=== PATIENT | female | born 1990 | race Caucasian/White ===

== ENCOUNTER 2018-11-03 01:22 | Outpatient (CLI) | payer OTHER ==
[2018-11-03 02:07] LABS: APPEARANCE,URINE CLEAR; BILIRUBIN,URINE NEGATIVE (NEGATIVE); COLOR,URINE COLORLESS; GLUCOSE, URINE NEGATIVE (NEGATIVE); KETONES,URINE NEGATIVE (NEGATIVE); LEUKOCYTE ESTERASE,URINE NEGATIVE (NEGATIVE); NITRITE,URINE NEGATIVE (NEGATIVE); PROTEIN,URINE NEGATIVE (NEGATIVE); URINE SPECIFIC GRAVITY 1.002; UROBILINOGEN,URINE NEGATIVE mg/dL (<2.0)
[2018-11-03 02:19] LABS: URINE AMPHETAMINES SCREEN NEGATIVE; URINE BARBITURATES SCREEN NEGATIVE; URINE BENZODIAZEPINES SCREEN NEGATIVE; URINE COCAINE SCREEN NEGATIVE; URINE MARIJUANA (THC) SCREEN NEGATIVE; URINE METHADONE SCREEN NEGATIVE; URINE PHENCYCLIDINE SCREEN NEGATIVE
--- NOTE | 2018-11-03 03:06 | RADIOLOGY REPORT (SQ) ---
EXAM DESCRIPTION: US LIMITED COMPLETED DATE/TME: 11/03/2018 00:00 CLINICAL HISTORY: 28 years Female, post fall, rule out abruption, cervical length 28w1d Comparison: None. TECHNIQUE/LIMITATION: Targeted OB sonogram for requested parameters only. FINDINGS: Cardiac activity: 144-bpm. TAMI: 13-cm Placenta: Posterior. No evidence of abruption. Low-lying placenta. Presentation: Vertex Cervical length: 3.8-cm. Closed appearance. Other: Possible nuchal cord. IMPRESSION: Targeted OB sonogram for requested parameters
== END 2018-11-03 03:24 | disposition home or self-care (01) ==
LOC: LC 01:22
PROVIDERS: ATTEND Obstetrics & Gynecology
PROC: 4A1HXCZ Monitoring of Products of Conception, Cardiac Rate, External Approach (ICD-10-PCS; principal; 2018-11-03)
DX: Z34.83 Encounter for supervision of other normal pregnancy, third trimester (principal); Z91.81 History of falling
CPT/HCPCS: 76815; 80307; 81001

== ENCOUNTER 2019-01-20 21:16 | Outpatient (CLI) | payer OTHER ==
[2019-01-20 22:10] LABS: APPEARANCE,URINE CLOUDY; BILIRUBIN,URINE NEGATIVE (NEGATIVE); COLOR,URINE YELLOW; GLUCOSE, URINE NEGATIVE (NEGATIVE); KETONES,URINE NEGATIVE (NEGATIVE); LEUKOCYTE ESTERASE,URINE MODERATE (NEGATIVE); NITRITE,URINE NEGATIVE (NEGATIVE); PROTEIN,URINE NEGATIVE (NEGATIVE); URINE SPECIFIC GRAVITY 1.012; UROBILINOGEN,URINE NEGATIVE mg/dL (<2.0)
--- NOTE | 2019-01-20 22:25 | Non Stress Test Report ---
Non Stress Test Datetime Report Generated by CPN: 01/20/2019 22:24 DEMOGRAPHIC EGA NST: 39.2 INDICATION Indication for Study: Ordered by Provider URINE RESULTS Urine Protein, NST: Negative Urine Ketones - NST: Negative Urine Glucose - NST: Negative Urine Blood - NST: Negative MONITORING Monitor Explained: Monitor Explained; Test Explained; Patient Verbalized Understanding Time on Monitor: 01/20/2019 21:30 Time off Monitor: 01/20/2019 22:21 NST Duration: 51 NST INTERVENTIONS NST Interventions: PO Hydration; Reposition Patient Physician Notified NST: Dr. Ley BABY A: [id number] BABY A Movement : Present Contraction Frequency : Occasional FHR Baseline : 125 Accelerations : 15X15 Decelerations : None Variability : Moderate 6-25bpm NST Review: Meets Criteria for Reactive NST NST Review and Verified By : Eyal Lord RN NST Results: Reactive NST REPORT Report Trigger: Send Report
[2019-01-20 22:33] LABS: URINE AMPHETAMINES SCREEN NEGATIVE; URINE BARBITURATES SCREEN NEGATIVE; URINE BENZODIAZEPINES SCREEN NEGATIVE; URINE COCAINE SCREEN NEGATIVE; URINE MARIJUANA (THC) SCREEN NEGATIVE; URINE METHADONE SCREEN NEGATIVE; URINE PHENCYCLIDINE SCREEN NEGATIVE
== END 2019-01-20 22:36 | disposition home or self-care (01) ==
LOC: LC 21:16
PROVIDERS: ATTEND Obstetrics & Gynecology Gynecology
PROC: 4A1HXCZ Monitoring of Products of Conception, Cardiac Rate, External Approach (ICD-10-PCS; principal; 2019-01-20)
DX: O47.1 False labor at or after 37 completed weeks of gestation (principal); Z3A.39 39 weeks gestation of pregnancy
CPT/HCPCS: 59025; 80307; 81005; 84112

== ENCOUNTER 2019-01-25 11:56 | Inpatient (IN) | payer OTHER ==
[2019-01-25] MEDS ORDERED: RINGERS SOLUTION,LACTATED 300 ML IV ONE (12:14)
[2019-01-25] MEDS ORDERED: RINGERS SOLUTION,LACTATED 1,000 ML IV PRN (12:14)
--- NOTE | 2019-01-25 12:30 | Admission Physical ---
Datetime Report Generated by CPN: 01/25/2019 12:29 CURRENT ADMISSION Hx Assessment: The History has been Reviewed and is Current Chief Complaint: Uterine Contractions Indication for Induction: Not Applicable Admit Impression : Term, Intrauterine ; No Active Labor; Intact Membranes Admit Plan: Admit to Unit; Initiate Labor Protocol ALLERGIES Medication Allergies: No Medication Allergies: Penicillins (01/20/2019) Latex: No Latex Allergies Environmental Allergies: seasonal OBSTETRICAL HISTORY EDC: 01/25/2019 00:00 : 2 Para: 1 Term: 1 : 0 SAB: 0 IAB: 0 Ectopic: 0 Livin Cesareans: 0 VBACs: 0 Multiple Births: 0 Gestational Diabetes: No Rh Sensitization: No Incompetent Cervix: No PAVAN: No Infertility: No ART Treatment: No Uterine Anomaly: No IUGR: No Hx Previous C/S: No Macrosomia: No Hx Loss/Stillborn: No PIH: No Hx : No Placenta Previa/Abruption: No Depression/PP Depression: No PTL/PROM: No Post Hemorrhage: No Current Procedures: Ultrasound Obstetrical History Comments: G1- 6lbs 4 oz female , 07/18/2017- patient told she has small canal G2- current SEE RECORDS Alcohol: No Marijuana : No Cocaine: No Other Illicit Drugs: No Cigarettes: Current Everyday Smoker. 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: No Heart Disease: No Hosp/Surgery: No Autoimmune Disorder: No Anesthetic Complications: No Kidney Disease: No Abnormal Pap Smear: Yes Neuro/Epilepsy: No Psychiatric Disorders: No Other Medical Diseases: No Hepatitis/Liver Disease: No Significant Family History: No Varicosities/Phlebitis: No Trauma/Violence : No Thyroid Dysfunction: No INFECTIOUS HISTORY Gonorrhea: No Genital Herpes: No Chlamydia: No Tuberculosis: No Syphilis: No Hepatitis: No HIV/AIDS Exposure: No Rash or Viral Illness: No HPV: Yes Infectious History Comments: ASCUS w HRHPV- needs colpo PP PHYSICAL EXAM General: Normal HEENT: Normal Neurologic: Normal Thyroid: Deferred Heart: Normal Lungs: Normal Breast: Deferred Back: Normal Abdomen: Normal Genitourinary Exam: Deferred Extremities: Normal DTRs: Normal Pelvic Type: Adequate Physical Exam Comments: GBS + Vital Signs: Reviewed MEMBRANES Membranes: Intact FETUS A EGA: 40.0 Monitoring: External US Variability: Moderate 6-25bpm Accelerations: 15X15 Decelerations: None FHR Category: Category I Admit Comment: Admitted to LD in active labor, started having uc's last night, worse this am Cat 1 strip, + GBS Plan: treat with Clindamycin, anticipate PLANS FOR LABOR AND DELIVERY Labor and Delivery: None Pain Management: Epidural Feeding Preference: Breast Benefit of Breast Feed Discussed: Yes Circumcision: Yes INFORMED CONSENT Assignment: Arturo Ley MD Signature: with User ID: Noah : with User ID: [email or web address]
[2019-01-25] MEDS ORDERED: CLINDAMYCIN 900 MG/D5W RTU 900 MG/50 ML RTUPB IV ONE (12:53)
[2019-01-25] MEDS ORDERED: MISOPROSTOL 0.2 MG TABLET ONE (13:18)
[2019-01-25] MEDS ORDERED: LIDOCAINE 1% INJ-PF (10 MG/ML) 30 ML SDV ONE (13:18)
[2019-01-25] MEDS ORDERED: OXYTOCIN/NORMAL SALINE 0 UNIT/0 ML RTUINJ ONE (13:18)
[2019-01-25] MEDS ORDERED: OXYTOCIN 10 UNIT/ML VIAL ONE ×2 (13:18→20:19)
[2019-01-25 13:32] LABS: ABSOLUTE LYMPHOCYTES (AUTO) 0.8 10^3/uL (0.5-4.7); ABSOLUTE MONOCYTES (AUTO) 0.6 10^3/uL (0.1-1.4); ABSOLUTE NEUT (AUTO) 8.6 10^3/uL (1.7-8.2); BASOPHILS % (AUTO) 0.3 % (0-2); EOSINOPHILS % (AUTO) 0.2 % (0-6); HEMATOCRIT 34.4 % (36.0-47.0); HEMOGLOBIN 11.6 g/dL (12.0-15.5); LYMPHOCYTES % (AUTO) 8.4 % (13-45); MEAN CORPUSCULAR HEMOGLOBIN 30.3 pg (27.0-33.4); MEAN CORPUSCULAR HGB CONC 33.7 g/dL (32.0-36.0); MEAN CORPUSCULAR VOLUME 90 fl (80-97); MONOCYTES % (AUTO) 5.7 % (3-13); PLATELET COUNT 200 10^3/uL (150-450); RED BLOOD COUNT 3.82 10^6/uL (3.72-5.28); RED CELL DISTRIBUTION WIDTH 20.1 % (11.5-14.0); SEGMENTED NEUTROPHILS % (AUTO) 85.4 % (42-78); TOTAL CELLS COUNTED % (AUTO) 100 %
[2019-01-25 13:47] LABS: APPEARANCE,URINE CLEAR; BILIRUBIN,URINE NEGATIVE (NEGATIVE); COLOR,URINE STRAW; GLUCOSE, URINE NEGATIVE (NEGATIVE); KETONES,URINE NEGATIVE (NEGATIVE); LEUKOCYTE ESTERASE,URINE NEGATIVE (NEGATIVE); NITRITE,URINE NEGATIVE (NEGATIVE); PROTEIN,URINE NEGATIVE (NEGATIVE); URINE SPECIFIC GRAVITY 1.005; UROBILINOGEN,URINE NEGATIVE mg/dL (<2.0)
[2019-01-25] MEDS ORDERED: EPHEDRINE SULFATE INJ 50 MG/1 ML AMPULE ONE ×2 (14:03→21:35)
[2019-01-25] MEDS ORDERED: PHENYLEPHRINE HCL INJ/PF 10 MG/1 ML SDV ONE (14:03)
[2019-01-25] MEDS ORDERED: FENTANYL CITRATE INJ/PF 100 MCG/2 ML AMPUL ONE ×3 (14:03→21:59)
[2019-01-25] MEDS ORDERED: BUPIVACAINE HCL 0.25 % INJ/PF (2.5 MG/1 ML) 30 ML VIAL ONE (14:04)
[2019-01-25] MEDS ORDERED: FENTANYL/BUPIVACAINE/NS/PF 300 MCG/150 ML RTUINJ EPI ONE (14:04)
[2019-01-25] MEDS ORDERED: LIDOCAINE 1.5%/EPINEPHRINE INJ 5 ML AMP ONE (14:05)
[2019-01-25 14:07] LABS: URINE AMPHETAMINES SCREEN NEGATIVE; URINE BARBITURATES SCREEN NEGATIVE; URINE BENZODIAZEPINES SCREEN NEGATIVE; URINE COCAINE SCREEN NEGATIVE; URINE MARIJUANA (THC) SCREEN NEGATIVE; URINE METHADONE SCREEN NEGATIVE; URINE PHENCYCLIDINE SCREEN NEGATIVE
[2019-01-25] MEDS ORDERED: ACETAMINOPHEN 325 MG TABLET ONE (16:37)
[2019-01-25] MEDS ORDERED: VANCOMYCIN HCL INJ 1000 MG VIAL ONE (17:24)
[2019-01-25] MEDS ORDERED: CITRIC ACID/SODIUM CITRATE ORAL SOLN 15 ML UDCUP ONE (20:06)
[2019-01-25] MEDS ORDERED: CEFAZOLIN 2 GM/D5W RTU 2 GM/50 ML RTUPB IV ONE (20:06)
[2019-01-25] MEDS ORDERED: LIDOCAINE 2%/EPINEPHRINE INJ 20 ML VIAL ONE (20:14)
[2019-01-25] MEDS ORDERED: SODIUM BICARBONATE 8.4% INJ 50 MEQ/50 ML DISP.SYRIN ONE (20:15)
[2019-01-25] MEDS ORDERED: MIDAZOLAM 2 MG/2 ML INJ ONE (20:19)
[2019-01-25] MEDS ORDERED: ONDANSETRON HCL INJ/PF 4 MG/2 ML SDV ONE (20:20)
[2019-01-25] MEDS ORDERED: OXYTOCIN/NORMAL SALINE 20 UNIT/1,000 ML RTUINJ ONE ×2 (20:20→21:56)
[2019-01-25] MEDS ORDERED: PROPOFOL INJ 200 MG/20 ML VIAL IV ONE (20:29)
[2019-01-25] MEDS ORDERED: MORPHINE SULFATE 10 MG/ML INJ IM PRN (21:29)
[2019-01-25] MEDS ORDERED: PROMETHAZINE HCL INJ 25 MG/1 ML VIAL IV PRN ×2 (21:29→21:32)
[2019-01-25] MEDS ORDERED: DIPH/PERTUSS(ACELL)/TETANUS VAC/PF 0.5 ML SYR (>=10YO) IM PRN (21:29)
[2019-01-25] MEDS ORDERED: ACETAMINOPHEN 1,000 MG/100 ML RTUPB IV PRN (21:29)
[2019-01-25] MEDS ORDERED: MEASLES,MUMPS&RUBELLA VACC/PF 0.5 ML VIAL SUBCUT PRN (21:29)
[2019-01-25] MEDS ORDERED: OXYTOCIN/NORMAL SALINE 20 UNIT/1,000 ML RTUINJ IV PRN (21:29)
[2019-01-25] MEDS ORDERED: ACETAMINOPHEN 325 MG TABLET PO PRN (21:29)
[2019-01-25] MEDS ORDERED: SIMETHICONE 80 MG TAB.CHEW PO PRN (21:29)
[2019-01-25] MEDS ORDERED: DIPHENHYDRAMINE HCL 50 MG/ML VIAL IV PRN (21:32)
[2019-01-25] MEDS ORDERED: MEPERIDINE HCL/PF INJ 25 MG/1 ML DISP.SYRIN IV PRN (21:32)
[2019-01-25] MEDS ORDERED: MORPHINE SULFATE 10 MG/ML INJ IV PRN (21:32)
[2019-01-25] MEDS ORDERED: FENTANYL CITRATE INJ/PF 100 MCG/2 ML AMPUL IV PRN ×3 (21:32)
[2019-01-25] MEDS ORDERED: KETOROLAC TROMETHAMINE INJ/PF 30 MG/1 ML SDV ONE (21:51)
[2019-01-25] MEDS ORDERED: ACETAMINOPHEN 1,000 MG/100 ML RTUPB IV ONE (21:51)
[2019-01-25 22:12] LABS: ABSOLUTE LYMPHOCYTES (AUTO) 0.7 10^3/uL (0.5-4.7); ABSOLUTE MONOCYTES (AUTO) 0.9 10^3/uL (0.1-1.4); ABSOLUTE NEUT (AUTO) 9.7 10^3/uL (1.7-8.2); BASOPHILS % (AUTO) 0.2 % (0-2); LYMPHOCYTES % (AUTO) 5.9 % (13-45); MEAN CORPUSCULAR HEMOGLOBIN 30.1 pg (27.0-33.4); MEAN CORPUSCULAR HGB CONC 32.9 g/dL (32.0-36.0); MEAN CORPUSCULAR VOLUME 92 fl (80-97); MONOCYTES % (AUTO) 7.9 % (3-13); PLATELET COUNT 171 10^3/uL (150-450); RED BLOOD COUNT 2.96 10^6/uL (3.72-5.28); RED CELL DISTRIBUTION WIDTH 19.7 % (11.5-14.0); TOTAL CELLS COUNTED % (AUTO) 100 %; WHITE BLOOD COUNT 11.3 10^3/uL (4.0-10.5)
[2019-01-25 22:16] LABS: HEMOGLOBIN 8.9 g/dL (12.0-15.5)
[2019-01-25 22:19] LABS: HEMATOCRIT 27.1 % (36.0-47.0)
[2019-01-25] MEDS ORDERED: NORMAL SALINE 250 ML IV PRN (23:14)
[2019-01-25] MEDS: CLINDAMYCIN 900 MG/D5W RTU 900 MG/50 ML RTUPB IV SCH (23:42)
[2019-01-25] MEDS ORDERED: VANCOMYCIN HCL INJ 1000 MG VIAL IV SCH (23:45)
[2019-01-25] MEDS: KETOROLAC TROMETHAMINE INJ/PF 30 MG/1 ML SDV IV SCH (23:46)
--- NOTE | 2019-01-26 00:41 | Delivery Summary ---
Del Sum A-C Datetime Report Generated by CPN: 01/26/2019 00:41 DELIVERY PERSONNEL DELIVERY PERSONNEL: [id number] Delivery Doctor:: Arturo Ley MD Anesthesiologist:: Ginny Lawrence MD PENCIL SORTER:: Luis Lobo CRNA Labor and Delivery Nurse:: Roberta Ashford RN Labor and Delivery Nurse:: Rose Mary Stewart RN Parlor Chaperone:: Roberta Ashford RN Nursery Nurse:: Marisa Alvarez RN Packer Dried Beef/TUBE BUILDER: ST Michelle Packer Dried Beef/TUBE BUILDER: rose mary R, ST MATERNAL INFORMATION Delivery Anesthesia: Epidural Medications After Delivery: Pitocin Drip 20 Units/1000ml NSS Maternal Complications: Maternal Fever LABOR SUMMARY EDC: 01/25/2019 00:00 No. Babies in Womb: 1 Labor Anesthesia: Epidural LABOR INFORMATION Reason for Induction: Not Applicable Onset of Labor: 01/25/2019 12:06 Oxytocin: N/A Group B Beta Strep: positive Antibiotics # of Doses: 1 Antibiotics Time of Last Dose: 1250 Name of Antibiotic Given: Clindamyin Steroids Given: None Reason Steroids Not Administered: Not Applicable MEMBRANES Membranes Rupture Method: Spontaneous Rupture of Membranes: 01/25/2019 14:40 Length of Rupture (hr): 6.32 Amniotic Fluid Color: Clear Amniotic Fluid Amount: Moderate Amniotic Fluid Odor: Normal STAGES OF LABOR Stage 3 hr: 0 Stage 3 min: 0 Total Time in Labor hr: 8 Total Time in Labor min: 53 VAGINAL DELIVERY Episiotomy: None Laceration #1: None Laceration Extension #1: N/A CSECTION DELIVERY Primary Indication: Failure of Descent CSection Urgency: Non-Scheduled CSection Incidence: Primary Labor: Labor CSection Incision: Lower Uterine Transverse BABY A INFORMATION Infant Delivery Date/Time: 01/25/2019 20:59 Method of Delivery: Born in Route : No : N/A Forceps: N/A Vacuum Extraction: N/A Shoulder Dystocia : No PRESENTATION/POSITION BABY A Presentation: Cephalic Cephalic Presentation: Vertex Breech Presentation: N/A PLACENTA INFORMATION BABY A Placenta Delivery Time : 01/25/2019 20:59 Placenta Method of Delivery: Manual Removal Placenta Status: Delivered SCORES BABY A Heart Rate 1 min: >100 bpm Resp Effort 1 min: Good Cry Reflex Irritability 1 min: Cough or Sneeze or Pulls Away Muscle Tone 1 min: Active Motion Color 1 min: Body Hall, Extremities Blue Resuscitation Effort 1 min: Tactile Stimulation SCORE 1 MIN: 9 Heart Rate 5 min: >100 bpm Resp Effort 5 min: Good Cry Reflex Irritability 5 min: Cough or Sneeze or Pulls Away Muscle Tone 5 min: Active Motion Color 5 min: Body Hall, Extremities Blue Resuscitation Effort 5 min: Tactile Stimulation SCORE 5 MIN: 9 INFANT INFORMATION BABY A Gestational Age at Delivery: 40.0 Gestational Status: Full Term- 39- 40.6 Weeks Infant Outcome : Liveborn Condition : Stable Infant Sex: Male IDENTIFICATION BABY A Infant Verification Date/Time: 01/25/2019 21:52 ID Band Number: [id number] Mother's Name Verified: Yes Infant RN Verifying Infant: Chadd Ashford, TOusmane Mcgowan RN WEIGHT/LENGTH BABY A Infant Birthweight (gm): 3720 Infant Weight (lb): 8 Weight (oz): 3 Infant Length (in): 20.50 Length (cm): 52.07 CORD INFORMATION BABY A No. Cord Vessels: 3 Nuchal Cord : N/A Cord Blood Taken: Yes-For Storage (Mom's Blood type +) Suction: None ASSESSMENT BABY A Complications: None Physical Findings at Delivery: Within Normal Limits Skin to Skin: Yes Transferred To: [facility] SIGNATURES Signature: with User ID: [email or web address]
--- NOTE | 2019-01-26 01:14 | OPERATIVE REPORT E ---
Operative Report NAME: MARINO KIM : 1990 AGE: 28Y DATE OF SURGERY: 01/25/2019 ROOM: LR200 PREOPERATIVE DIAGNOSIS: INTRAUTERINE AT TERM WITH FAILURE TO PROGRESS. POSTOPERATIVE DIAGNOSIS: INTRAUTERINE AT TERM WITH FAILURE TO PROGRESS. OPERATION: PRIMARY LOW TRANSVERSE SECTION WITH DELIVERY OF A VIABLE MALE; 8 POUNDS 3 OUNCES, SCORES 9 AND 9. SURGEON: Jose E PINA M.D. ESTIMATED BLOOD LOSS: Approximately 1000 mL. TISSUE REMOVED: Placenta. ANESTHESIA: Epidural. PROCEDURE: The patient was placed in a supine position, rolled on the right side, prepped and draped in sterile fashion. Pfannenstiel incision was made. The incision was extended through the subcutaneous tissue and fascia with sharp dissection. Fascia sharply divided. Rectus muscles bluntly and sharply divided. Parietal peritoneum was entered with sharp dissection. The uterus nicked in the midline and extended bilaterally. The infant was then delivered through the uterine abdominal incision. Nose and mouth suctioned with a bulb syringe. The cord was clamped. The infant was passed from the table. Placenta was manually extracted. Uterus was closed using 0 Vicryl for the first layer, there was extension down to the left sulcus on the left. This bleeding was noted and was controlled with multiple sutures of 2-0 Vicryl. The first layer was then placed, was a running stitch of 2-0 Vicryl and a Lembert stitch of 0 Monocryl. The pelvis was carefully inspected and hemostasis was noted. The fascia was closed with 0 Vicryl and the skin was closed with subcu absorbable darien. Her urine remained clear throughout the procedure and she was taken to the recovery room in good condition. DICTATING PHYSICIAN: Jose E PINA M.D. [id number] PHY#: [id number] ID: [id number] JOB#: [id number] ACCT: [id number] cc:Jose E PINA M.D. >
[2019-01-26] MEDS: OXYCODONE-ACETAMINOPHEN 5-325 MG TABLET PO PRN ×5 (02:42→23:30)
[2019-01-26] MEDS: CLINDAMYCIN 900 MG/D5W RTU 900 MG/50 ML RTUPB IV SCH (04:50)
[2019-01-26] MEDS ORDERED: VANCOMYCIN HCL INJ 1000 MG VIAL IV SCH (06:00)
[2019-01-26] MEDS: KETOROLAC TROMETHAMINE INJ/PF 30 MG/1 ML SDV IV SCH ×2 (06:02→14:27)
[2019-01-26 07:04] LABS: HEMOGLOBIN 8.5 g/dL (12.0-15.5); MEAN CORPUSCULAR HEMOGLOBIN 30.7 pg (27.0-33.4); MEAN CORPUSCULAR HGB CONC 33.8 g/dL (32.0-36.0); MEAN CORPUSCULAR VOLUME 91 fl (80-97); PLATELET COUNT 150 10^3/uL (150-450); RED BLOOD COUNT 2.76 10^6/uL (3.72-5.28); RED CELL DISTRIBUTION WIDTH 19.2 % (11.5-14.0); WHITE BLOOD COUNT 10.7 10^3/uL (4.0-10.5)
--- NOTE | 2019-01-26 10:11 | PDOC PROGRESS REPORT ---
Subjective-OB Progress Note for:: 01/26/19 - POD #1, s/p Primary for FTP. PPH w/ tachycardia. s/p 2 Units PRBC, pt denies CP or SOB, plans to breastfeed, A+ Rubella Immune Physical Exam (OB) Vital Signs: Temp Pulse Resp BP Pulse Ox 97.8 F 123 H 22 H 115/64 97 01/26/19 09:18 01/26/19 09:18 01/26/19 09:18 01/26/19 09:18 01/26/19 09:18 Intake & Output 01/25/19 01/26/19 01/27/19 06:59 06:59 06:59 Intake Total 300 0 Balance 300 0 Weight 80 kg - PIH/Pre-Eclampsia DTR's: 2 + Clonus: Negative Headache: Absent Epigastric Pain: No Visual Changes: No - Lochia Lochia Amount: Scant < 10 ml Lochia Color: Rubra/Red - Abdomen Description: Soft, Round Objective-Diagnostic Laboratory: 01/26/19 06:50 01/25/19 01/25/19 01/25/19 12:03 13:16 13:16 WBC 10.0 RBC 3.82 Hgb 11.6 L Hct 34.4 L MCV 90 MCH 30.3 MCHC 33.7 RDW 20.1 H Plt Count 200 Seg Neutrophils % 85.4 H Lymphocytes % 8.4 L Monocytes % 5.7 Eosinophils % 0.2 Basophils % 0.3 Absolute Neutrophils 8.6 H Absolute Lymphocytes 0.8 Absolute Monocytes 0.6 Absolute Eosinophils 0.0 Absolute Basophils 0.0 Urine Color STRAW Urine Appearance CLEAR Urine pH 6.0 Ur Specific [place] 1.005 Urine Protein NEGATIVE Urine Glucose (UA) NEGATIVE Urine Ketones NEGATIVE Urine Blood SMALL H Urine Nitrite NEGATIVE Ur Leukocyte Esterase NEGATIVE Blood Type A POSITIVE Antibody Screen NEGATIVE 01/25/19 01/26/19 21:53 06:50 WBC 11.3 H 10.7 H RBC 2.96 L 2.76 L Hgb 8.9 L D 8.5 L Hct 27.1 L 25.0 L MCV 92 91 MCH 30.1 30.7 MCHC 32.9 33.8 RDW 19.7 H 19.2 H Plt Count 171 150 Seg Neutrophils % 86.0 H Lymphocytes % 5.9 L Monocytes % 7.9 Eosinophils % 0.0 Basophils % 0.2 Absolute Neutrophils 9.7 H Absolute Lymphocytes 0.7 Absolute Monocytes 0.9 Absolute Eosinophils 0.0 Absolute Basophils 0.0 Urine Color Urine Appearance Urine pH Ur Specific [place] Urine Protein Urine Glucose (UA) Urine Ketones Urine Blood Urine Nitrite Ur Leukocyte Esterase Blood Type Antibody Screen Assessment and Plan(PN) - Assessment and Plan (1) Failure to progress in labor Is this a current diagnosis for this admission?: Yes (2) Status post primary low transverse section Is this a current diagnosis for this admission?: Yes (3) Acute blood loss anemia Is this a current diagnosis for this admission?: Yes (4) Blood transfusion during current hospitalisation Is this a current diagnosis for this admission?: Yes - Time Spent with Patient Time with patient: Less than 15 minutes Medications reviewed and adjusted accordingly: Yes - Disposition Anticipated Discharge: Home Within: within 48 hours
[2019-01-26] MEDS: DOCUSATE SODIUM 100 MG CAPSULE PO SCH ×2 (10:13→17:42)
[2019-01-26] MEDS: PRENATAL VITAMIN W DHA CAPSULE PO SCH (10:13)
[2019-01-26] MEDS ORDERED: VANCOMYCIN HCL 1,000 MG in DEXTROSE 5%-WATER 250 ML IV ONE (22:00)
[2019-01-26] MEDS: IBUPROFEN 800 MG TABLET PO SCH (23:29)
[2019-01-27] MEDS: OXYCODONE-ACETAMINOPHEN 5-325 MG TABLET PO PRN ×3 (06:05→21:05)
[2019-01-27] MEDS: IBUPROFEN 800 MG TABLET PO SCH ×3 (06:06→17:23)
[2019-01-27 06:19] LABS: HEMATOCRIT 30.2 % (36.0-47.0); HEMOGLOBIN 10.2 g/dL (12.0-15.5); MEAN CORPUSCULAR HEMOGLOBIN 30.6 pg (27.0-33.4); MEAN CORPUSCULAR HGB CONC 33.7 g/dL (32.0-36.0); MEAN CORPUSCULAR VOLUME 91 fl (80-97); PLATELET COUNT 159 10^3/uL (150-450); RED BLOOD COUNT 3.33 10^6/uL (3.72-5.28); RED CELL DISTRIBUTION WIDTH 18.6 % (11.5-14.0); WHITE BLOOD COUNT 10.6 10^3/uL (4.0-10.5)
--- NOTE | 2019-01-27 11:03 | PDOC PROGRESS REPORT ---
Subjective-OB Progress Note for:: 01/27/19 - POD #2, s/p Blood transfussion d/t PPH during the . Pt feeling better today, denies SOB, CP, no dizziness w/ ambulation. A+, rubella Immune, Physical Exam (OB) Vital Signs: Temp Pulse Resp BP Pulse Ox 97.8 F 111 H 16 119/63 95 01/27/19 08:08 01/27/19 08:08 01/27/19 08:08 01/27/19 08:08 01/27/19 08:08 Intake & Output 01/26/19 01/27/19 01/28/19 06:59 06:59 06:59 Intake Total 300 2105 Output Total 2900 Balance 300 -795 Weight 80 kg - General General Appearance: Appears well, Alert In distress: None - PIH/Pre-Eclampsia DTR's: 2 + Clonus: Negative Headache: Absent Epigastric Pain: No Visual Changes: No - Dressing Removed: No Incision: Open, Well Approximated Closure Type: opsite - Lochia Lochia Amount: Small 10-25 ml Lochia Color: Rubra/Red - Abdomen Description: Tender, Soft Hernia Present: No Fundal Description: Firm, Midline Fundal Height: u/u - u/2 - Respiratory Respiratory Status: No respiratory distress - Abdominal Inspection: Normal Distension: No distension - Genitourinary Genitourinary Note: voiding - Extremities Upper extremity: Normal inspection Lower extremities: Edema - trace - Neurological Cognition: Normal Orientation: AAOx4 - Psychological Associated symptoms: Normal affect, Normal mood - Skin Skin Temperature: Warm Skin Moisture: Dry Objective-Diagnostic Laboratory: 01/27/19 05:32 01/27/19 05:32 WBC 10.6 H RBC 3.33 L Hgb 10.2 L Hct 30.2 L MCV 91 MCH 30.6 MCHC 33.7 RDW 18.6 H Plt Count 159 Assessment and Plan(PN) - Assessment and Plan (1) Failure to progress in labor Is this a current diagnosis for this admission?: Yes (2) Status post primary low transverse section Is this a current diagnosis for this admission?: Yes (3) Acute blood loss anemia Is this a current diagnosis for this admission?: Yes (4) Blood transfusion during current hospitalisation Is this a current diagnosis for this admission?: Yes - Time Spent with Patient Time with patient: Less than 15 minutes Medications reviewed and adjusted accordingly: Yes - Disposition Anticipated Discharge: Home Within: within 24 hours
[2019-01-27] MEDS: PRENATAL VITAMIN W DHA CAPSULE PO SCH (11:07)
[2019-01-27] MEDS: DOCUSATE SODIUM 100 MG CAPSULE PO SCH ×2 (11:07→17:23)
[2019-01-27] MEDS ORDERED: OXYCODONE-ACETAMINOPHEN 5-325 MG TABLET PO PRN (12:06)
[2019-01-28] MEDS: OXYCODONE-ACETAMINOPHEN 5-325 MG TABLET PO PRN ×3 (03:21→12:20)
[2019-01-28] MEDS: IBUPROFEN 800 MG TABLET PO SCH ×3 (05:58→12:20)
[2019-01-28] MEDS: PRENATAL VITAMIN W DHA CAPSULE PO SCH (10:26)
[2019-01-28] MEDS: DOCUSATE SODIUM 100 MG CAPSULE PO SCH (10:26)
--- NOTE | 2019-01-28 10:39 | PDOC DISCHARGE SUMMARY ---
Final Diagnosis Discharge Date: 01/28/19 - POD #3, feeling much better today. s/p blood transfusion for PPH, A+, Rubella Immune, , ambulating w/out complaints - Final Diagnosis (1) Failure to progress in labor Is this a current diagnosis for this admission?: Yes (2) Status post primary low transverse section Is this a current diagnosis for this admission?: Yes (3) Acute blood loss anemia Is this a current diagnosis for this admission?: Yes (4) Blood transfusion during current hospitalisation Is this a current diagnosis for this admission?: Yes (5) Normal course Is this a current diagnosis for this admission?: Yes Discharge Data - Discharge Medication Prescriptions: Ibuprofen [Motrin 800 mg Tablet] 800 mg PO Q6 #60 tablet Oxycodone HCl/Acetaminophen [Percocet 5-325 mg Tablet] 1 tab PO Q4HP PRN #30 tablet PRN Reason: Pain Scale Of 4 Home Medications: Ferrous Sulfate [Iron] 325 mg PO DAILY 01/20/19 Vits96/Iron Fum/Folic [ Tablet] 1 each PO DAILY 01/20/19 Ranitidine HCl [Zantac 150 mg Tablet] 75 mg PO PRN PRN 01/20/19 Ibuprofen [Motrin 800 mg Tablet] 800 mg PO Q6 #60 tablet 01/28/19 Oxycodone HCl/Acetaminophen [Percocet 5-325 mg Tablet] 1 tab PO Q4HP PRN #30 t ablet 01/28/19 Reason(s) for Admission: Induction of Labor Procedures: NST, Ultrasound Intrapartum Procedure(s): : Low Cervical, Transverse Complication(s): Transfusion, Hemorrhage-Uterine Atony - Diagnosis Test Laboratory: Temp Pulse Resp BP Pulse Ox 98.8 F 95 16 118/66 97 01/28/19 08:15 01/28/19 08:15 01/28/19 08:15 01/28/19 08:15 01/28/19 08:15 01/25/19 01/25/19 01/25/19 12:03 13:16 21:53 RBC 3.82 2.96 L Hgb 11.6 L 8.9 L D Hct 34.4 L 27.1 L Urine Opiates Screen NEGATIVE 01/26/19 01/27/19 06:50 05:32 RBC 2.76 L 3.33 L Hgb 8.5 L 10.2 L Hct 25.0 L 30.2 L Urine Opiates Screen - Discharge information/Instructions Discharge Activity: Activity As Tolerated, No Driving, No Lifting Over 10 Pounds, Pelvic Rest Discharge Diet: As Tolerated, Regular Disposition: HOME, SELF-CARE Follow up with: [facility] in: 1, Weeks
[2019-01-28 12:28] VITALS: BP 116/73
== END 2019-01-28 15:34 | disposition home or self-care (01) | DRG 787 ==
LOC: LC 11:56 → LR 12:13 → 2S 01-26 01:14
PROVIDERS: ADMIT Obstetrics & Gynecology Gynecology; ATTEND Obstetrics & Gynecology Gynecology
PROC: 10D00Z1 Extraction of Products of Conception, Low, Open Approach (ICD-10-PCS; principal; 2019-01-25)
PROC: 30233N1 Transfusion of Nonautologous Red Blood Cells into Peripheral Vein, Percutaneous Approach (ICD-10-PCS; 2019-01-26)
DX: O62.1 Secondary uterine inertia (principal); D62 Acute posthemorrhagic anemia; O75.2 Pyrexia during labor, not elsewhere classified; O90.81 Anemia of the puerperium; O99.334 Smoking (tobacco) complicating childbirth; F17.210 Nicotine dependence, cigarettes, uncomplicated; O99.824 Streptococcus B carrier state complicating childbirth; Z79.899 Other long term (current) drug therapy; Z88.0 Allergy status to penicillin; Z3A.40 40 weeks gestation of pregnancy; Z37.0 Single live birth
CPT/HCPCS: 1961; 36415; 36430; 80307; 81005; 85025; 85027; 86592; 86850; 86900; 86901; 86920; 94760; 94799; J0131; J0690; J1885; J2250; J2370; J2405; J2590; J2704; J3010; J3370; J3490; J7060; P9016